=== PATIENT | male | born 1975 | race Caucasian/White ===

== ENCOUNTER 2018-02-02 10:52 | Observation (INO) | payer SELFPAY ==
[2018-02-02] MEDS ORDERED: NS 1,000 ML IV ONE ×3 (11:03→13:18)
--- NOTE | 2018-02-02 11:04 | CPEKG ---
Heart Rate: 81 RR Interval: 741 P-R Interval: 156 QRSD Interval: 106 QT Interval: 416 QTC Interval: 483 P [place]: 35 QRS [place]: 92 T Wave [place]: 78 EKG Severity - BORDERLINE ECG - EKG Impression: SINUS RHYTHM EKG Impression: BORDERLINE INFERIOR Q WAVES EKG Impression: BORDERLINE PROLONGED QT INTERVAL Electronically Signed By: Mireya Perales 02-Feb-2018 16:43:05
[2018-02-02 11:11] LABS: PLATELET COUNT 270 10^3/uL (150-400)
--- NOTE | 2018-02-02 11:45 | EDPHY ---
H & P Stated Complaint: DIZZY, NEAD SYNCOPE Time Seen by Provider: 02/02/18 11:00 HPI/ROS: CHIEF COMPLAINT: Dizzy, almost fainted HISTORY OF PRESENT ILLNESS: This is a 42-year-old male with a history of hypertension and alcohol abuse who presents after almost fainting. 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 He felt somewhat dizzy and lightheaded this morning and took a double dose of his lisinopril, thinking that his blood pressure was high. This morning he took 40 mg instead of his usual 20 mg. He tells me that his blood pressure usually runs 150-170 over 70-80. However, he has not had it checked for many months. He has a history of alcohol abuse and drinks 16-32 oz of vodka daily. He had a "couple of swallows" of vodka around 8:30 this morning when he took his anti hypertensive medication. He continued to feel dizzy and while at work his dizziness worsened. He became more more lightheaded and developed some tunnel vision. He did not faint some but felt as if he would so he sat down. He fainted once 5 years ago when he stood up too quickly. He did feel slightly lightheaded yesterday when bending over or squatting. This morning, in addition to feeling lightheaded, he has had some mild midepigastric pain. He vomited 3 times after developing his lightheadedness. No blood in the vomitus. No blood in his stool. He has no known history of pancreatitis. He denies chest pain or shortness of breath. No known coronary artery disease. No history of alcohol withdrawal seizures. REVIEW OF SYSTEMS: A ten point review of systems was performed and is negative with the exception of the items mentioned in the HPI. Past medical history: 1. Hypertension 2. Alcohol abuse 3. Tobacco abuse Social history: He is single. He lives in [place]. 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 He travels with this job. General Appearance: Alert. Vital signs reviewed. Blood pressure 94/50 with heart rate of 83. Eyes: Pupils equal and round, no conjunctival injection, no discharge. Anicteric. ENT, Mouth: Mucous membranes are dry, no oropharyngeal erythema or edema. Neck: No lymphadenopathy, supple. Respiratory: Lungs are clear to auscultation; no wheezes, rales, or rhonchi. Cardiovascular: Regular rate and rhythm; no murmur, rub, or gallop. Gastrointestinal: Abdomen is soft and nontender, no masses or organomegaly, bowel sounds normal. Skin: Warm and dry, no rashes on exposed skin, normal color. Can. Back: Nontender to palpation over the thoracolumbar spine. No CVAT. Extremities: No lower extremity edema, no calf tenderness or swelling. Neurological: Alert and oriented. Moving all four extremities easily and equally. TONE. EOMI. Tongue midline. Facial expression symmetric. - Personal History Current Tetanus/Diphtheria Vaccine: Yes - Medical/Surgical History Hx Asthma: No Hx Chronic Respiratory Disease: No Hx Diabetes: No Hx Cardiac Disease: No Hx Renal Disease: No Hx Cirrhosis: No Hx Alcoholism: No Hx HIV/AIDS: No Hx Splenectomy or Spleen Trauma: No Other PMH: HTN - Social History Smoking Status: Current every day smoker Constitutional: Initial Vital Signs Temperature (C) 36.7 C 02/02/18 10:58 Heart Rate 83 02/02/18 10:58 Respiratory Rate 16 02/02/18 10:58 Blood Pressure 94/50 L 02/02/18 10:58 O2 Sat (%) 96 02/02/18 10:58 O2 Delivery Mode Room Air Allergies/Adverse Reactions: hydrocodone [From Vicodin] Allergy (Severe, Verified 02/02/18 13:36) Itching Home Medications: Medication Instructions Recorded Lisinopril [Lisinopril] 20 mg PO DAILY 02/02/18 Medical Decision Making - Diagnostics EKG Interpretation: 12 lead EKG is interpreted in Trace master View by emergency department physician. ED Course/Re-evaluation: 42-year-old male with presyncopal episode followed by vomiting. He has mild midepigastric pain. He has a history of alcohol abuse and has a blood alcohol of 263 in the emergency department. He is hypotensive with systolic blood pressure in the 90s. He took a double dose of lisinopril this morning, thinking that his dizziness might be related to hypertension. This might account for his low blood pressure. I also suspect volume depletion. No evidence of cardiac arrhythmia while in the department. He is noted to have a creatinine of 3.2, likely due to dehydration. In the emergency department he received 3 L of IV normal saline. He was followed closely for signs of alcohol withdrawal. He was orthostatic. I have not found evidence of bleeding. He does not appear to have pancreatitis. On reexamination is abdomen is soft and nontender. He is being admitted to the hospital for further evaluation and treatment as needed. Differential Diagnosis: Syncope including but not limited to vasovagal syncope, arrhythmia, dehydration , and blood loss. - Data Points Laboratory Results: Laboratory Results 02/02/18 11:00 02/02/18 11:00 Medications Given: Discontinued Medications Chlordiazepoxide HCl (Librium) 25 - 50 mg PO Q4HRS PRN; Protocol PRN Reason: CIWA Protocol Stop: 08/01/18 18:14 Last Admin: 02/02/18 18:32 Dose: 50 mg Famotidine (Pepcid) 20 mg PO BID YADY Stop: 08/01/18 20:59 Last Admin: 02/03/18 09:17 Dose: 20 mg Sodium Chloride (Ns) 1,000 mls @ 0 mls/hr IV ONCE ONE PRN Reason: Wide Open Stop: 02/02/18 11:04 Last Admin: 02/02/18 11:05 Dose: 1,000 mls Sodium Chloride (Ns) 1,000 mls @ 0 mls/hr IV EDNOW ONE; Wide Open PRN Reason: Protocol Stop: 02/02/18 11:38 Last Admin: 02/02/18 11:42 Dose: 1,000 mls Sodium Chloride (Ns) 1,000 mls @ 0 mls/hr IV ONCE ONE PRN Reason: Wide Open Stop: 02/02/18 13:19 Last Admin: 02/02/18 13:23 Dose: 1,000 mls Thiamine HCl 500 mg/ Sodium (Chloride) 105 mls @ 210 mls/hr IV DAILY YADY Stop: 02/06/18 08:59 Last Admin: 02/03/18 09:12 Dose: 105 mls Ibuprofen (Motrin) 600 mg PO EDNOW ONE Stop: 02/02/18 12:48 Last Admin: 02/02/18 13:18 Dose: Not Given Lisinopril (Zestril) 20 mg PO DAILY YADY Stop: 08/02/18 08:59 Last Admin: 02/03/18 09:17 Dose: 20 mg Lorazepam (Ativan Injection) 0 mg IVP Q1H PRN; Protocol PRN Reason: Alcohol Withdrawal w/IV access Stop: 08/01/18 20:01 Last Admin: 02/03/18 09:18 Dose: 2 mg Multivitamins (Tab-A-Sudha) 1 each PO DAILY YADY Stop: 08/01/18 18:14 Last Admin: 02/03/18 09:18 Dose: 1 each Nicotine (Nicoderm Cq) 21 mg TD DAILY YADY Stop: 08/01/18 18:14 Last Admin: 02/03/18 09:11 Dose: 21 mg Pneumococcal Polyvalent Vaccine (Pneumovax 23) 0.5 ml IM .ONCE ONE Stop: 02/02/18 16:06 Last Admin: 02/02/18 16:21 Dose: 0.5 ml Thiamine HCl (Vitamin B-1) 100 mg PO DAILY AYDY Stop: 02/05/18 09:01 Last Admin: 02/03/18 09:17 Dose: 100 mg Thiamine HCl (Vitamin B-1) 100 mg IM ONCE ONE Stop: 02/02/18 18:16 Last Admin: 02/02/18 20:09 Dose: 100 mg Departure - Departure Disposition: [facility] Acute Clinical Impression: Pre-syncope, Alcohol abuse, Acute renal injury Condition: Good
[2018-02-02] MEDS ORDERED: IBUPROFEN 600 MG TAB PO ONE (12:47)
[2018-02-02] MEDS ORDERED: PNEUMOCOCCAL 0.5ML VACCINE VIAL IM ONE (16:05)
--- NOTE | 2018-02-02 17:49 | PDGENHP ---
History and Physical History and Physical: Chief complaint: Dizziness, lightheadedness History of present illness: Pt is a 42 yo M here for dizziness and near syncope this morning. 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 This has not happened to him in the past. He felt lightheaded and had some blurred vision. Also a/w slight MCCOY, tinnitus, nausea and bilious vomiting x 2-3 times. A/w muscle aches in neck and upper back/shoulder and xiphoid tenderness which may be from his chronic smoker's cough. Episode lasted about 2 hours. It resolved after he came to the ED, where he was put into a dark room and given a bag of saline. Other associated symptoms- tingling in b/l feet x 1yr. R hip hurts sometimes. Past medical history: Hypertension Past surgical history: Foot surgery at 24 years old Medications: Lisinopril 20 mg daily Allergies: Hydrocodone causes itching and puffiness Social history: Patient travels for work and is currently visiting [place]. Occupation-food conception. He lives with his parents in the winter. The rest of the year he travels in a camper with 2 roommates for work. Alcohol-32 oz vodka daily. He has done a detoxification in the past and was sober for 4 months. Smokes 1-1/2 to 2 packs a day of tobacco. Recreational drugs-none. Family history: Hypertension. Review of systems: 10 point review of systems was conducted and is negative except per HPI Physical exam: Vitals: Reviewed General: The patient is an obese male who is alert and in no acute distress. HEENT: normocephalic, extraocular movements intact, conjunctivae clear, no lesions on face. Nares and oral mucosa pink and moist. Neck: trachea midline, no visible masses, no external lesions. CV: +S1/S2, RRR, no MRG. Resp: unlabored, CTAB no RRW. Abd: soft and mildly distended. Bowel sounds present and hyperactive. No tenderness throughout. Musculoskeletal: Normal muscle tone and bulk. Neuro: cranial nerves II XII grossly intact. Intact gross motor and sensory function. Psych: appropriate mood/affect. Skin: no pallor. +red, roberto carlos appearance of skin. Labs: Sodium 141 potassium 4.4 CO2 20 and get 27 BUN 24 creatinine 3.2 glucose 106 calcium 10.1 total bilirubin 0.8 conjugated bilirubin 0.6 alk-phos 79 AST 130 ALT 160 troponin I less than 0.012 total protein 8.4 albumin 5.0 lipase 240 ethanol level 263. On CBC hemoglobin 15.1, WBC 6.77, MCV 100.2, platelets 270. Other Data: EKG: Normal sinus rhythm, QTC 460, no acute ischemic changes. 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 He is now euvolemic. No need for IV fluids at this time -encouraged fluid intake orally. -check abdominal ultrasound to evaluate liver and kidneys. -check urinalysis and drug screen. -check vitamin B12 and folate in morning to evaluate neuropathy further. -nicotine patch. -no NSAIDs or acetaminophen for this patient. He is not in pain, so there is no need for p.r.n. Pain medication. If 1 is needed, he should get oxycodone or morphine. -IM thiamine followed by po thiamine and MVN daily. -Librium, CIWA monitoring -Ativan prn seizure, seizure precautions. -Nicotine patch. -Counseled on alcohol and smoking cessation. -Pneumococcal vaccine given. -VTE ppx - ambulatory. -Code status - Full.
[2018-02-02 18:03] LABS: INR 0.92 (0.83-1.16); PROTIME(PATIENT) 12.6 SEC (12.0-15.0)
[2018-02-02] MEDS ORDERED: ONDANSETRON 4 MG/2 ML VIAL IVP PRN (18:04)
[2018-02-02] MEDS ORDERED: ALBUTEROL 3 ML DEYVIAL IH PRN (18:04)
[2018-02-02] MEDS ORDERED: ONDANSETRON DISINTEGRATING 4 MG TAB PO PRN (18:04)
[2018-02-02] MEDS ORDERED: chlordiazePOXIDE 25 MG CAP PO PRN (18:15)
[2018-02-02] MEDS ORDERED: THIAMINE HCL 200 MG/2 ML VIAL IM ONE (18:15)
[2018-02-02] MEDS ORDERED: MAGNESIUM HYDROXIDE 30 ML UDCUP PO PRN (18:15)
[2018-02-02] MEDS ORDERED: PROMETHAZINE HCL 25 MG TAB PO PRN (18:15)
[2018-02-02] MEDS ORDERED: MAG HYDROX/AL HYDROX/SIMETH 30 ML UDCUP PO PRN (18:15)
[2018-02-02] MEDS ORDERED: FLUMAZENIL 0.5 MG/5 ML MDV IVP PRN ×2 (18:15→20:02)
[2018-02-02] MEDS ORDERED: PROMETHAZINE HCL 25 MG SUPPR PR PRN (18:15)
[2018-02-02] MEDS: NICOTINE 21 MG/24 HR PATCH TD SCH (18:28)
[2018-02-02] MEDS: MULTIVITAMINS 1 EACH TAB PO SCH (18:36)
[2018-02-02] MEDS ORDERED: LORazepam 1 MG TAB PO PRN (20:02)
[2018-02-02] MEDS: FAMOTIDINE 20 MG TAB PO SCH (20:09)
[2018-02-02] MEDS: LORazepam 2 MG/ML INJ IVP PRN (20:26)
[2018-02-02] MEDS ORDERED: LORazepam 2 MG/ML INJ IVP PRN (23:37)
[2018-02-03] MEDS: LORazepam 2 MG/ML INJ IVP PRN ×3 (00:56→09:18)
[2018-02-03 04:52] LABS: PLATELET COUNT 223 10^3/uL (150-400)
[2018-02-03 07:34] VITALS: BP 145/92
[2018-02-03] MEDS ORDERED: THIAMINE HCL 100 MG TAB PO SCH (09:00)
[2018-02-03] MEDS ORDERED: LISINOPRIL 20 MG TAB PO SCH (09:00)
[2018-02-03] MEDS ORDERED: THIAMINE HCL 500 MG in NS 100 ML IV SCH (09:00)
[2018-02-03] MEDS: NICOTINE 21 MG/24 HR PATCH TD SCH (09:11)
[2018-02-03] MEDS: FAMOTIDINE 20 MG TAB PO SCH (09:17)
[2018-02-03] MEDS: MULTIVITAMINS 1 EACH TAB PO SCH (09:18)
--- NOTE | 2018-02-03 10:14 | PDDCSUM ---
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 It was associated with some lightheadedness, blurred vision, slight headache, tinnitus , nausea, several episodes of vomiting, and muscle aches. Patient was found to have a creatinine of 3.2 in the ED. He was rehydrated with 4 L of IV saline. He was monitored overnight and worked up for alternate causes of acute kidney injury. The next day, his creatinine was down to 0.9. Ultrasound of the kidneys was normal as well as urinalysis. Ultrasound did demonstrate fatty liver. Patient was counseled on alcohol cessation and smoking cessation. He was recommended to consider entering a detox program in the future. He may discuss this further with his primary care physician after discharge. Patient was discharged home in stable condition. Physical Exam: General: The patient is a male who is alert and in no acute distress. HEENT: normocephalic, extraocular movements intact, conjunctivae clear, no lesions on face. Nares and oral mucosa pink and moist. Neck: trachea midline, no visible masses, no external lesions. Resp: unlabored breathing. Abd: soft and mildly distended. Musculoskeletal: Normal muscle tone and bulk. Neuro: cranial nerves II XII grossly intact. Intact gross motor and sensory function. Psych: appropriate mood/affect. Skin: no pallor. Condition: Stable Discharged to: Home Pertinent tests/labs/imaging: Creatinine in 3.2 on admission, 0.9 on discharge. Abdomen ultrasound-normal kidneys. Fatty liver. Medications: Please see med rec form. No new medications. Special instructions: Recommended the patient stay well hydrated and drink 3-4 L of fluid a day. He does not like taste of water, he may use electrolyte tablets or put fruits/herbs into his water. Consider detox program for alcohol cessation. Cut back on alcohol for now. Cut back on smoking for now. Consider quitting smoking altogether. Return to hospital if symptoms return. Follow up: Follow up with PCP in 1-2 weeks. Less than 30 minutes of total time was spent on counseling and coordination of care for this patient's discharge.
[2018-02-05] MEDS ORDERED: THIAMINE HCL 100 MG TAB PO SCH (18:15)
== END 2018-02-03 11:00 | disposition home or self-care (01) ==
LOC: INTOOBSV 13:52 → F3E 15:06
PROVIDERS: ADMIT Family Medicine; ATTEND Internal Medicine
DX: E86.0 Dehydration (principal); N17.9 Acute kidney failure, unspecified; R55 Syncope and collapse; F10.220 Alcohol dependence with intoxication, uncomplicated; Y90.8 Blood alcohol level of 240 mg/100 ml or more; G62.1 Alcoholic polyneuropathy; K70.0 Alcoholic fatty liver; F17.210 Nicotine dependence, cigarettes, uncomplicated; D75.89 Other specified diseases of blood and blood-forming organs; I10 Essential (primary) hypertension; E66.09 Other obesity due to excess calories; Z68.30 Body mass index [BMI] 30.0-30.9, adult; Z23 Encounter for immunization
CPT/HCPCS: 80307; 82607-90; G0009; G0378; G0480; J2060; J3411